=== PATIENT | male | born 1985 | race Caucasian/White ===

== ENCOUNTER 2016-11-11 00:03 | Emergency (ER) | payer OTHER ==
[2016-11-11] MEDS ORDERED: PROPARACAINE 0.5% OPHTH DROPS 15 ML ONE (02:43)
== END 2016-11-11 03:22 | disposition home or self-care (01) ==
DX: Z77.098 Contact with and (suspected) exposure to other hazardous, chiefly nonmedicinal, chemicals (principal)
CPT/HCPCS: 99283; J3490

== ENCOUNTER 2017-02-17 18:10 | Emergency (ER) | payer OTHER ==
[2017-02-17 18:18] VITALS: BP 118/76
--- NOTE | 2017-02-17 18:44 | ED Physician Documentation ---
PD HPI GI BLEED - Stated complaint Stated Complaint: BLOOD IN STOOL - Chief complaint Chief Complaint: Abd Pain - History obtained from History obtained from: Patient, Family - History of Present Illness Timing - onset: Today Timing - duration: Days (1) Timing - details: Gradual onset Pain level max: 0 Pain level now: 0 Associated symptoms: BRBPR. No: Vomiting, Coffee ground emesis, Hematemesis, Black/tarry stool, Diarrhea, Constipation, Abdominal pain, Chest pain Contributing factors: No: Sick contact, Bad food, Travel, Recent antibiotics, Alcohol use, Aspirin use, NSAID use, Stress, Anticoagulated, Diabetes Improved by: Other (nothing) Worsened by: Other (nothing) Similar symptoms before: Diagnosis (1 year ago, no dx) Recently seen: Not recently seen Review of Systems Constitutional: denies: Fever, Chills Nose: denies: Rhinorrhea / runny nose, Congestion Throat: denies: Sore throat Cardiac: denies: Chest pain / pressure Respiratory: denies: Cough GI: denies: Abdominal Pain, Nausea, Vomiting, Constipation, Diarrhea, Hematemesis Skin: denies: Rash Musculoskeletal: denies: Neck pain, Back pain Neurologic: denies: Focal weakness, Numbness, Headache PD PAST MEDICAL HISTORY - Past Medical History Past Medical History: No - Past Surgical History Past Surgical History: Yes - Present Medications Home Medications: Ambulatory Orders Medication Instructions Recorded Confirmed No Known Home Medications [No 02/17/17 02/17/17 Known Home Medications] - Allergies Allergies/Adverse Reactions: Allergies Allergy/AdvReac Type Severity Reaction Status Date / Time No Known Drug Allergies Allergy Verified 11/11/16 00:10 - Social History Does the pt smoke?: No Smoking Status: Never smoker Does the pt drink ETOH?: Yes Does the pt have substance abuse?: No - Immunizations Immunizations are current?: Yes - POLST Patient has POLST: No PD ED PE NORMAL - Vitals Vital signs reviewed: Yes - General General: Alert and oriented X 3, No acute distress, Well developed/nourished - HEENT HEENT: Moist mucous membranes - Neck Neck: Supple, no meningeal sign - Cardiac Cardiac: RRR, Strong equal pulses - Respiratory Respiratory: No respiratory distress, Clear bilaterally - Abdomen Abdomen: Soft, Non tender, Non distended - Rectal Rectal: Other (Normal rectal exam. no stool in rectal vault.) - Derm Derm: Warm and dry - Neuro Neuro: Alert and oriented X 3 - Psych Psych: Normal mood, Normal affect Results - Vitals Vitals: Vital Signs - 24 hr 02/17/17 18:17 Temperature 35.9 C L Heart Rate 71 Respiratory 18 Rate Blood Pressure 118/76 O2 Saturation 99 Oxygen O2 Source Room air - Labs Labs: Laboratory Tests 02/17/17 02/17/17 02/17/17 18:50 18:50 18:50 WBC 7.8 RBC 4.96 Hgb 14.3 Hct 42.1 MCV 84.9 MCH 28.9 MCHC 34.0 RDW 13.5 Plt Count 164 MPV 9.6 Neut # 4.1 Lymph # 2.4 [facility] # 1.0 Eos # 0.3 Baso # 0.0 Absolute Nucleated RBC 0.00 Nucleated RBCs 0.0 PT 11.3 INR 1.0 APTT 25.6 Sodium 139 Potassium 3.7 Chloride 104 Carbon Dioxide 26 Anion Gap 9.0 BUN 19 Creatinine 1.0 Estimated GFR (MDRD) 88 L Glucose 104 H Calcium 9.3 Total Bilirubin 0.2 AST 27 ALT 29 Alkaline Phosphatase 81 Total Protein 7.3 Albumin 4.0 Globulin 3.3 Albumin/Globulin Ratio 1.2 Lipase 15 L PD MEDICAL DECISION MAKING - ED course Complexity details: reviewed results, re-evaluated patient, considered differential, d/w patient, d/w family ED course: Patient with hematochezia. Well-appearing, nontoxic. Afebrile. Abdomen soft, nontender nondistended. Likely internal hemorrhoids. We will have him follow- up with his doctor for further evaluation and care. No recent antibiotics. No recent travel. Patient counseled regarding signs and symptoms for which I believe and urgent re-evaluation would be necessary. Patient with good understanding of and agreement to plan and is comfortable going home at this time This document was made in part using voice recognition software. While efforts are made to proofread this document, sound alike and grammatical errors may occur. Departure - Departure Disposition: 01 Home, Self Care Clinical Impression: Hematochezia Condition: Good Instructions: ED Hematochezia Stable Follow-Up: your,doctor in 3 days [Other] Comments: You need to follow-up with your doctor in 3 days for repeat evaluation. Your blood counts are normal today. Return if you develop lightheadedness, dizziness or pass out. You should follow-up with your doctor to schedule a colonoscopy for evaluation of your rectal bleeding. Discharge Date/Time: 02/17/17 19:26
[2017-02-17 19:02] LABS: BASOPHILS % (AUTO) 0.6 %; EOSINOPHILS # (AUTO) 0.3 10^3/uL (0.0-0.7); EOSINOPHILS % (AUTO) 3.7 %; HCT - HEMATOCRIT 42.1 % (42.0-52.0); HGB - HEMOGLOBIN 14.3 g/dL (14.0-18.0); LYMPHOCYTES # (AUTO) 2.4 10^3/uL (1.5-3.5); LYMPHOCYTES % (AUTO) 31.4 %; MEAN CORPUSCULAR HEMOGLOBIN 28.9 pg (27.0-31.0); MEAN CORPUSCULAR VOLUME 84.9 fL (80.0-94.0); MEAN PLATELET VOLUME 9.6 fL (7.4-11.4); MONOCYTES % (AUTO) 12.2 %; NEUTROPHILS # (AUTO) 4.1 10^3/uL (1.5-6.6); NEUTROPHILS % (AUTO) 52.1 %; RED BLOOD COUNT 4.96 10^6/uL (4.70-6.10); RED CELL DISTRIBUTION WIDTH 13.5 % (12.0-15.0); UNCORRECTED WHITE BLOOD COUNT 7.8 x10^3/uL; WHITE BLOOD COUNT 7.8 x10^3/uL (4.8-10.8)
[2017-02-17 19:07] LABS: PT - PROTHROMBIN TIME 11.3 secs (9.9-12.6)
[2017-02-17 19:14] LABS: PARTIAL THROMBOPLASTIN TIME 25.6 secs (24.9-33.3)
[2017-02-17 19:15] LABS: ALBUMIN/GLOBULIN RATIO 1.2 (1.0-2.2); BILIRUBIN,TOTAL 0.2 mg/dL (0.2-1.0); CALCIUM 9.3 mg/dL (8.5-10.3); POTASSIUM 3.7 mmol/L (3.5-5.0); TOTAL PROTEIN 7.3 g/dL (6.7-8.2)
== END 2017-02-17 19:26 | disposition home or self-care (01) ==
LOC: ED 18:10
DX: K92.1 Melena (principal)
CPT/HCPCS: 36415; 80053; 83690; 85025; 85610; 85730; 99283

== ENCOUNTER 2017-10-31 17:42 | Emergency (ER) | payer OTHER ==
[2017-10-31 20:35] LABS: ALBUMIN 4.5 g/dL (3.2-5.5); ALBUMIN/GLOBULIN RATIO 1.5 (1.0-2.2); ALKALINE PHOSPHATASE 71 IU/L (42-121); ALT ALANINE AMINOTRANSFERASE 39 IU/L (10-60); AST ASPARTATE AMINOTRANSFERASE 29 IU/L (10-42); BILIRUBIN,TOTAL 0.7 mg/dL (0.2-1.0); BUN - BLOOD UREA NITROGEN 17 mg/dL (6-20); CALCIUM 9.2 mg/dL (8.5-10.3); CARBON DIOXIDE - CO2 28 mmol/L (21-32); CHLORIDE 100 mmol/L (101-111); GFR - MDRD 88 (>89); GLUCOSE 94 mg/dL (70-100); LIPASE 10 U/L (22-51); SALICYLATE < 6.0 mg/dL; SODIUM 135 mmol/L (135-145); TOTAL PROTEIN 7.6 g/dL (6.7-8.2)
[2017-10-31 20:40] LABS: ACETAMINOPHEN < 10 ug/mL (10-30)
[2017-10-31 21:11] LABS: MUDS CUTOFF CONCENTRATIONS CUTOFF CONC BELOW:
--- NOTE | 2017-10-31 21:11 | ED Physician Documentation ---
PD HPI MHE - Stated complaint Stated Complaint: SI - Chief complaint Chief Complaint: MHE - History obtained from History obtained from: Patient, Other (flight surgeon from [facility] is in room accompanying patient) - History of Present Illness Primary symptom: Suicidal ideation (verbalized suicidal threat) Timing - onset: Today (this afternoon) Contributing factors: Other - Additional information Additional information: patient was in a discussion with superior officer at [facility] earlier today during which patient made threat to kill himself by shooting himself. He was inpatient several months ago in a facility in [facility] for mental health; per flight surgeon (present in ED), patient was demoted a rank and he felt this was unjust , made statements at that time that led to inpatient stay for few days. He admits to me that he made suicidal statement earlier today but denies that he is going to act on them. He requests to be discharged home. Review of Systems Psychiatric: denies: Suicidal (see above (he denies suicidal intent, but admits to making suicidal statement earlier)), Homicidal (denies thoughts or intent of hurting anyone else) PD PAST MEDICAL HISTORY - Past Medical History Past Medical History: No - Past Surgical History Past Surgical History: Yes - Present Medications Home Medications: Ambulatory Orders Medication Instructions Recorded Confirmed No Known Home Medications [No 02/17/17 02/17/17 Known Home Medications] - Allergies Allergies/Adverse Reactions: Allergies Allergy/AdvReac Type Severity Reaction Status Date / Time No Known Drug Allergies Allergy Verified 11/11/16 00:10 - Social History Does the pt smoke?: No Smoking Status: Never smoker Does the pt drink ETOH?: Yes Does the pt have substance abuse?: No - Immunizations Immunizations are current?: Yes - POLST Patient has POLST: No PD ED PE NORMAL - Vitals Vital signs reviewed: Yes - General General: Alert and oriented X 3, No acute distress, Well developed/nourished - Cardiac Cardiac: RRR, No murmur - Respiratory Respiratory: No respiratory distress, Clear bilaterally - Derm Derm: Normal color, Warm and dry - Neuro Neuro: Alert and oriented X 3 Eye Opening: Spontaneous Motor: Obeys Commands Verbal: Oriented GCS Score: 15 PD ED PE EXPANDED - Psych Psych: Other (flat) Results - Vitals Vitals: Vital Signs - 24 hr 10/31/17 10/31/17 10/31/17 18:38 21:10 23:51 Temperature 36.3 C L Heart Rate 84 88 88 Respiratory 18 18 18 Rate Blood Pressure 131/93 H 137/90 H 137/76 H O2 Saturation 98 99 95 Oxygen O2 Source Room air - Labs Labs: Laboratory Tests 10/31/17 10/31/17 20:13 21:02 Sodium 135 Potassium 4.0 Chloride 100 L Carbon Dioxide 28 Anion Gap 7.0 BUN 17 Creatinine 1.0 Estimated GFR (MDRD) 88 L Glucose 94 Calcium 9.2 Total Bilirubin 0.7 AST 29 ALT 39 Alkaline Phosphatase 71 Total Protein 7.6 Albumin 4.5 Globulin 3.1 Albumin/Globulin Ratio 1.5 Lipase 10 L Salicylates < 6.0 Urine Opiates Screen NEGATIVE Ur Oxycodone Screen NEGATIVE Urine Methadone Screen NEGATIVE Ur Propoxyphene Screen NEGATIVE Acetaminophen < 10 L Ur Barbiturates Screen NEGATIVE Ur Tricyclics Screen NEGATIVE Ur Phencyclidine Scrn NEGATIVE Ur Amphetamine Screen NEGATIVE U Methamphetamines Scrn NEGATIVE U Benzodiazepines Scrn NEGATIVE Urine Cocaine Screen NEGATIVE U Cannabinoids Screen NEGATIVE Ethyl Alcohol < 5.0 PD MEDICAL DECISION MAKING - ED course Complexity details: reviewed results, re-evaluated patient, considered differential, d/w patient ED course: Evaluated by [facility] in ED and cleared for discharge home. Departure - Departure Disposition: 01 Home, Self Care Clinical Impression: Depression Condition: Good Instructions: ED Depression Follow-Up: SCOTTIE Santos [Provider Group] Discharge Date/Time: 10/31/17 23:51
[2017-10-31 21:27] LABS: COCAINE SCREEN URINE NEGATIVE (NEGATIVE)
[2017-10-31 21:28] LABS: AMPHETAMINE SCREEN,URINE NEGATIVE (NEGATIVE); BENZODIAZEPINES SCREEN, URINE NEGATIVE (NEGATIVE); METHADONE SCREEN, URINE NEGATIVE (NEGATIVE); METHAMPHETAMINES SCREEN, URINE NEGATIVE (NEGATIVE); OPIATE SCREEN, URINE NEGATIVE (NEGATIVE); OXYCODONE SCREEN, URINE NEGATIVE (NEGATIVE); PROPOXYPHENE SCREEN, URINE NEGATIVE (NEGATIVE); TRICYCLIC ANTIDEPRESSANT,URINE NEGATIVE (NEGATIVE)
[2017-10-31 23:51] VITALS: BP 137/76
== END 2017-10-31 23:51 | disposition home or self-care (01) ==
LOC: ED 17:42
DX: F32.9 Major depressive disorder, single episode, unspecified (principal); R45.851 Suicidal ideations
CPT/HCPCS: 36415; 80053; 80306; 80307; 80320; 80329; 83690; 99283